=== PATIENT | female | born 1990 | race Caucasian/White ===

== ENCOUNTER 2017-06-08 17:35 | Emergency (ER) | payer OTHER ==
[~2017-06-08] VITALS: Ht 167.6 cm; Wt 95.3 kg
--- NOTE | 2017-06-08 18:20 | PHYS DOC ---
Past Medical History Past Medical History: Other Additional Past Medical Histor: "BLOOD CLOTTING DISORDER" Past Surgical History: No Surgical History Alcohol Use: None Drug Use: None Adult General Chief Complaint Chief Complaint: HEADACHE HPI HPI Patient is a 26 year old female who presents with one day history of gradual onset headache typical for her migraines frontal nausea no vomiting or diarrhea ; has had prior episodes of some slight chest discomfort and shortness of breath and has had a elevated d-dimer but negative CT of the chest no prior history of pulmonary embolism. Denies fever or photophobia. Review of Systems Review of Systems Constitutional: Denies fever or chills [] Eyes: Denies change in visual acuity, redness, or eye pain [] HENT: Denies nasal congestion or sore throat [] Respiratory: Denies cough or shortness of breath [] Cardiovascular: No additional information not addressed in HPI [] GI: Denies abdominal pain, nausea, vomiting, bloody stools or diarrhea [] : Denies dysuria or hematuria [] Musculoskeletal: Denies back pain or joint pain [] Integument: Denies rash or skin lesions [] Neurologic: Denies headache, focal weakness or sensory changes [] Endocrine: Denies polyuria or polydipsia [] Current Medications Current Medications Current Medications Medications (Trade) Dose Ordered Sig/Nancy Start Time Stop Time Status Last Admin Dose Admin Diphenhydramine HCl (Benadryl) 25 mg 1X ONCE 06/08/17 18:30 06/08/17 18:31 DC 06/08/17 18:26 25 MG Ketorolac Tromethamine (Toradol) 30 mg 1X ONCE 06/08/17 18:30 06/08/17 18:31 DC 06/08/17 18:26 30 MG Metoclopramide HCl (Reglan) 5 mg 1X ONCE 06/08/17 18:30 06/08/17 18:31 DC 06/08/17 18:26 5 MG Sodium Chloride 1,000 ml @ 1,000 mls/hr 1X ONCE 06/08/17 18:30 06/08/17 19:29 06/08/17 18:27 1,000 MLS/HR Allergies Allergies Allergies Coded Allergies Type Severity Reaction Last Updated Verified No Known Drug Allergies 06/08/17 No Physical Exam Physical Exam Constitutional: Well developed, well nourished, no acute distress, non-toxic appearance. [] HENT: Normocephalic, atraumatic, bilateral external ears normal, oropharynx moist, no oral exudates, nose normal. [] Eyes: PERRLA, EOMI, conjunctiva normal, no discharge. [] Neck: Normal range of motion, no tenderness, supple, no stridor. [] Cardiovascular:Heart rate regular rhythm, no murmur [] Lungs & Thorax: Bilateral breath sounds clear to auscultation [] Abdomen: Bowel sounds normal, soft, no tenderness, no masses, no pulsatile masses. [] Skin: Warm, dry, no erythema, no rash. [] Back: No tenderness, no CVA tenderness. [] Extremities: No tenderness, no cyanosis, no clubbing, ROM intact, no edema. [] Neurologic: Alert and oriented X 3, normal motor function, normal sensory function, no focal deficits noted. [] Psychologic: Affect normal, judgement normal, mood normal. [] Current Patient Data Vital Signs Vital Signs Date Time Temp Pulse Resp B/P (MAP) Pulse Ox O2 Delivery O2 Flow Rate FiO2 06/08/17 18:49 74 18 149/64 (92) 98 Room Air 06/08/17 17:50 98.3 98.3 Lab Values Laboratory Tests Test 06/08/17 17:02 POC Urine HCG, Qualitative Hcg negative (Negative) EKG EKG [] Radiology/Procedures Radiology/Procedures [] Course & Med Decision Making Course & Med Decision Making Pertinent Labs and Imaging studies reviewed. (See chart for details) 1907 p.m. patient feels improved and wants to go home. Dragon Disclaimer Dragon Disclaimer This electronic medical record was generated, in whole or in part, using a voice recognition dictation system. Departure Departure Impression: Primary Impression: Migraine headache Disposition: HOME, SELF-CARE Condition: IMPROVED Patient Instructions: Migraine Headache, [id number] RAMILA POWELL MD Jun 08, 2017 18:20
[2017-06-08] MEDS ORDERED: METOCLOPRAMIDE HCL 10 MG/2 ML VIAL. IV ONE (18:30)
[2017-06-08] MEDS ORDERED: KETOROLAC TROMETHAMINE 30 MG/ML INJ. IV ONE (18:30)
[2017-06-08] MEDS ORDERED: diphenhydrAMINE 50 MG/ML VIAL IVP ONE (18:30)
[2017-06-08] MEDS ORDERED: IV NORMAL SALINE 1000ML BAG 1,000 ML IV ONE (18:30)
[2017-06-08 18:49] VITALS: BP 149/64
== END 2017-06-08 19:26 | disposition home or self-care (01) ==
LOC: ER 17:35
DX: G43.909 Migraine, unspecified, not intractable, without status migrainosus (principal); R07.89 Other chest pain; R06.02 Shortness of breath; Z86.2 Personal history of diseases of the blood and blood-forming organs and certain disorders involving the immune mechanism
CPT/HCPCS: 81025; 96361; 96374; 96375; 99284; J1200; J1885; J2765; J7030

== ENCOUNTER 2020-05-21 04:37 | Emergency (ER) | payer BC, MEDICAID ==
[~2020-05-21] VITALS: Ht 167.6 cm; Wt 89.5 kg
[2020-05-21] MEDS ORDERED: HYDROmorphone 2 MG/ML VIAL SQ ONE (05:15)
[2020-05-21] MEDS ORDERED: GABA300C18 PO (05:23)
--- NOTE | 2020-05-21 05:24 | PHYS DOC ---
Past Medical History Past Medical History: Other Additional Past Medical Histor: "BLOOD CLOTTING DISORDER" Past Surgical History: No Surgical History Smoking Status: Current Every Day Smoker Alcohol Use: None Drug Use: None General Adult EDM: Chief Complaint: OTHER COMPLAINTS HPI: HPI: Patient is a 29 year old female who presents with 10 months of pain in the right upper extremity. Patient describes it as a [id number] and/or tingling sensation that seems to wax and wane. Some days it is pretty bad in another state other days it is not so bad. However in the last couple of days the patient reports that the pain seems to has intensified. She denies any ch kusum in strength that is not secondary to pain and reports that there is been some changes in sensation. Patient reports that the pain seems to go from her neck along the posterior shoulder along the spine of the scapula which then proceeds down the posterior portion of her arm and into her hand including the thumb and first digit. Patient denies any trauma, fever chills, chest pain, shortness of breath or headache. Review of Systems: Review of Systems: Constitutional: Denies fever or chills. [] Eyes: Denies change in visual acuity. [] HENT: Denies nasal congestion or sore throat. [] Respiratory: Denies cough or shortness of breath. [] Cardiovascular: Denies chest pain or edema. [] GI: Denies abdominal pain, nausea, vomiting, bloody stools or diarrhea. [] : Denies dysuria. [] Musculoskeletal: Denies back pain or joint pain. [] Integument: Denies rash. [] Neurologic: Denies headache, see HPI. [] Endocrine: Denies polyuria or polydipsia. [] Lymphatic: Denies swollen glands. [] Psychiatric: Denies depression or anxiety. [] Heart Score: Risk Factors: Risk Factors: DM, Current or recent (<one month) smoker, HTN, HLP, family history of CAD, obesity. Risk Scores: Score 0 - 3: 2.5% MACE over next 6 weeks - Discharge Home Score 4 - 6: 20.3% MACE over next 6 weeks - Admit for Clinical Observation Score 7 - 10: 72.7% MACE over next 6 weeks - Early Invasive Strategies Allergies: Allergies: Allergies Coded Allergies Type Severity Reaction Last Updated Verified No Known Drug Allergies 06/08/17 No Physical Exam: PE: Constitutional: Well developed, well nourished, no acute distress, non-toxic appearance. [] HENT: Normocephalic, atraumatic, bilateral external ears normal, oropharynx moist, no oral exudates, nose normal. [] Eyes: PERRLA, EOMI, conjunctiva normal, no discharge. [] Neck: Normal range of motion, tenderness of the paracervical musculature and of the cervical vertebral processes, supple, no stridor. [] Cardiovascular:Heart rate regular rhythm, no murmur [] Lungs & Thorax: Bilateral breath sounds clear to auscultation [] Extremities: No tenderness, no cyanosis, no clubbing, ROM intact, no edema. [] Neurologic: Alert and oriented X 3, all dermatomes and myotomes were tested. No focal weakness was noted in any of the myotomes, patient with the change in sensation in multiple dermatomes that were not contiguous. [] [] Current Patient Data: Labs: Laboratory Tests Test 05/21/20 04:57 POC Urine HCG, Qualitative Hcg negative (Negative) EKG: EKG: [] Radiology/Procedures: Radiology/Procedures: [] Course & Med Decision Making: Course & Med Decision Making Pertinent Labs and Imaging studies reviewed. (See chart for details) [id number]-patient was seen and reevaluated. Cervical spine CT was reviewed. Nothing is present that suggests a cause of her pain coming from the cervical neck. I encouraged the patient to follow-up with her primary care and consider a nerve conduction test EMG. I discussed reasons to return, treatment plan and need for follow-up. Mahin Disclaimer: Mahin Disclaimer: This electronic medical record was generated, in whole or in part, using a voice recognition dictation system. Departure Departure Impression: Primary Impression: Cervical radiculopathy Disposition: 01 HOME, SELF-CARE Condition: IMPROVED Referrals: UNKNOWN PCP NAME (PCP) Patient Instructions: Cervical Radiculopathy Additional Instructions: Follow-up with your primary care physician and consider NCT/EMG Scripts Gabapentin (GABAPENTIN ) 300 Mg Capsule 300 MG PO QHS for NEUROGENIC PAIN, #30 CAP After 2 or 3 days you may increase the pill by 1 if it does not cause significant sedation. Prov: YVES DAVE MD 05/21/20 Justicifation of Admission Dx: Justifications for Admission: Justification of Admission Dx: N/A YVES DAVE MD May 21, 2020 05:24
--- NOTE | 2020-05-21 05:52 | RAD ---
INDICATION: Reason: Radicular neck pain / Spl. Instructions: / History: COMPARISON: None. TECHNIQUE: Axial CT images obtained through the cervical spine. One or more of the following individualized dose reduction techniques were utilized for this examination: 1. Automated exposure control; 2. Adjustment of the mA and/or kV according to patient size; 3. Use of iterative reconstruction technique. FINDINGS: No evidence of acute fracture or dislocation. Mild degenerative changes with early osteophyte formation. Mild encroachment on the right greater than left neural foramina at C3-4 IMPRESSION: * No evidence of acute fracture or dislocation. * Mild degenerative changes. * The tonsils appear enlarged. Could be from tonsillar hyperplasia but would correlate with symptoms of tonsillitis. Electronically signed by: Ector Lawton MD (05/21/2020 5:49 AM) [id number]
[2020-05-21 06:00] VITALS: BP 138/61
== END 2020-05-21 06:13 | disposition home or self-care (01) ==
LOC: ER 04:37
DX: M54.12 Radiculopathy, cervical region (principal); M79.601 Pain in right arm; R20.0 Anesthesia of skin; F17.200 Nicotine dependence, unspecified, uncomplicated
CPT/HCPCS: 72125; 81025; 96372; 99284; J1170